=== PATIENT | female | born 1990 | race Caucasian/White ===

== ENCOUNTER 2018-07-18 14:06 | Emergency (ER) | payer OTHER | END 2018-07-18 16:43 | disposition home or self-care (01) | LOC: FTE 14:06 | DX: O26.891 Other specified pregnancy related conditions, first trimester (principal); Z3A.14 14 weeks gestation of pregnancy | CPT/HCPCS: 76805; 99284-25 ==

== ENCOUNTER 2018-12-26 21:37 | Outpatient (CLI) | payer OTHER ==
[2018-12-26 23:02] LABS: ADD MAN DIFF? NO
[2018-12-26 23:07] LABS: BASOPHILS % 0.2 % (0.0-2.0); EOSINOPHILS # 0.1 10^3/ul (0.0-0.5); EOSINOPHILS % 1.3 % (0.0-7.0); HEMOGLOBIN 11.7 g/dl (12.0-16.0); LYMPHOCYTES # 2.3 10^3/ul (0.8-2.9); LYMPHOCYTES % 24.7 % (15.0-51.0); MEAN CORPUSCULAR HEMOGLOBIN 29.3 pg (29.0-33.0); MEAN CORPUSCULAR HGB CONC 33.4 g/dl (32.0-37.0); MEAN CORPUSCULAR VOLUME 87.7 fl (82.0-101.0); MEAN PLATELET VOLUME 10.5 fl (7.4-10.4); MONOCYTE # 0.7 10^3/ul (0.3-0.9); MONOCYTES % 7.4 % (0.0-11.0); PLATELET COUNT 175 10^3/UL (140-415); RED BLOOD COUNT 3.99 10^6/ul (4.20-5.40); RED CELL DISTRIBUTION WIDTH 14.3 % (11.5-14.5)
[2018-12-26 23:07] LABS: WHITE BLOOD COUNT 9.3 10^3/ul (4.8-10.8)
[2018-12-26 23:09] LABS: ADD UMIC NO; UR ASCORBIC ACID NEGATIVE (NEGATIVE); UR BACTERIA FEW /HPF (NONE SEEN); UR BILIRUBIN (Dip) NEGATIVE (NEGATIVE); UR BLOOD (Dip) NEGATIVE (NEGATIVE); UR CLARITY SLIGHTLY CLOUDY (CLEAR); UR COLOR YELLOW (YELLOW); UR GLUCOSE (Dip) NEGATIVE (NEGATIVE); UR KETONES (Dip) NEGATIVE (NEGATIVE); UR LEUKOCYTE ESTERASE (Dip) NEGATIVE Leu/ul (NEGATIVE); UR NITRITE (Dip) NEGATIVE (NEGATIVE); UR RBC 0 /HPF (0-5); UR SPECIFIC GRAVITY (Dip) 1.014 (1.003-1.030); UR SQUAMOUS EPITHELIAL CELL MODERATE /HPF (FEW); UR TOTAL PROTEIN (Dip) NEGATIVE (NEGATIVE); UR UROBILINOGEN (Dip) NEGATIVE (NEGATIVE); UR WBC 1 /HPF (0-5)
[2018-12-26 23:26] LABS: INR 1.01; PARTIAL THROMBOPLASTIN TIME 25.8 Sec (23.0-35.0); PROTIME 13.4 Sec (11.9-14.9)
[2018-12-26 23:34] LABS: ALANINE AMINOTRANSFERASE 26 IU/L (13-69); ALBUMIN 3.5 g/dl (3.3-4.9); ALBUMIN/GLOBULIN RATIO 1.02; ALKALINE PHOSPHATASE 159 IU/L (42-121); ANION GAP 11 (5-13); ASPARTATE AMINO TRANSFERASE 23 IU/L (15-46); BILIRUBIN,INDIRECT 0.1 mg/dl (0-1.1); BILIRUBIN,TOTAL 0.1 mg/dl (0.2-1.3); BLOOD UREA NITROGEN 8 mg/dl (7-20); CALCIUM 9.3 mg/dl (8.4-10.2); CARBON DIOXIDE 19 mmol/L (21-31); CHLORIDE 106 mmol/L (97-110); CREATININE 0.51 mg/dl (0.44-1.00); Estimated GFR > 60 mL/min (>60); GLUCOSE 79 mg/dl (70-220); POTASSIUM 3.7 mmol/L (3.5-5.1); SODIUM 136 mmol/L (135-144); TOTAL PROTEIN 6.9 g/dl (6.1-8.1); URIC ACID 3.7 mg/dl (3.1-7.9)
== END 2018-12-26 23:57 | disposition home or self-care (01) ==
LOC: OBT 21:37 → L-D 21:37 → OBT 23:57
DX: O26.893 Other specified pregnancy related conditions, third trimester (principal); Z3A.36 36 weeks gestation of pregnancy; H53.8 Other visual disturbances
CPT/HCPCS: 76818; 80053; 81001; 81003; 84560; 85025; 85384; 85610; 85730

== ENCOUNTER 2018-12-29 21:00 | Outpatient (CLI) | payer OTHER | END 2018-12-29 23:17 | disposition home or self-care (01) | LOC: OBT 21:00 → L-D 21:06 | DX: O41.93X0 Disorder of amniotic fluid and membranes, unspecified, third trimester, not applicable or unspecified (principal); Z3A.36 36 weeks gestation of pregnancy | CPT/HCPCS: 76815 ==

== ENCOUNTER 2019-01-15 17:16 | Inpatient (IN) | payer OTHER ==
[2019-01-15] MEDS ORDERED: LACTATED RINGER'S 1,000 ML IV (20:35)
[2019-01-15] MEDS ORDERED: BUTORPHANOL 2 MG INJ IV (21:00)
[2019-01-15] MEDS ORDERED: CARBOPROST 250 MCG INJ IM (21:00)
[2019-01-15] MEDS ORDERED: BUTORPHANOL 1 MG INJ IV (21:00)
[2019-01-15] MEDS: LACTATED RINGER'S 1,000 ML IV (21:00)
[2019-01-15] MEDS ORDERED: LIDOCAINE 1% (MPF) 30 ML INJ INJ (21:00)
[2019-01-15] MEDS ORDERED: IBUPROFEN 600 MG TAB PO (21:00)
[2019-01-15] MEDS ORDERED: OXYTOCIN 30 UNITS/LR 500 ML IV (21:00)
[2019-01-15] MEDS ORDERED: MINERAL OIL LIGHT 10 ML VIAL TOP (21:00)
[2019-01-15 21:50] LABS: ADD MAN DIFF? NO
[2019-01-15 21:52] LABS: WHITE BLOOD COUNT 10.6 10^3/ul (4.8-10.8)
[2019-01-15 21:52] LABS: BASOPHILS % 0.2 % (0.0-2.0); EOSINOPHILS # 0.2 10^3/ul (0.0-0.5); EOSINOPHILS % 1.5 % (0.0-7.0); HEMATOCRIT 36.5 % (37.0-47.0); HEMOGLOBIN 12.3 g/dl (12.0-16.0); LYMPHOCYTES # 2.2 10^3/ul (0.8-2.9); LYMPHOCYTES % 20.3 % (15.0-51.0); MEAN CORPUSCULAR HEMOGLOBIN 29.1 pg (29.0-33.0); MEAN CORPUSCULAR HGB CONC 33.7 g/dl (32.0-37.0); MEAN CORPUSCULAR VOLUME 86.3 fl (82.0-101.0); MEAN PLATELET VOLUME 10.3 fl (7.4-10.4); MONOCYTE # 0.8 10^3/ul (0.3-0.9); MONOCYTES % 7.1 % (0.0-11.0); NEUTROPHIL # 7.4 10^3/ul (1.6-7.5); NEUTROPHILS % 69.6 % (39.0-77.0); PLATELET COUNT 186 10^3/UL (140-415); RED BLOOD COUNT 4.23 10^6/ul (4.20-5.40); RED CELL DISTRIBUTION WIDTH 14.6 % (11.5-14.5)
[2019-01-15 22:08] LABS: ALANINE AMINOTRANSFERASE 28 IU/L (13-69); ALBUMIN 3.6 g/dl (3.3-4.9); ALBUMIN/GLOBULIN RATIO 1.16; ALKALINE PHOSPHATASE 194 IU/L (42-121); ANION GAP 9 (5-13); ASPARTATE AMINO TRANSFERASE 27 IU/L (15-46); BILIRUBIN,INDIRECT 0.2 mg/dl (0-1.1); BILIRUBIN,TOTAL 0.2 mg/dl (0.2-1.3); BLOOD UREA NITROGEN 9 mg/dl (7-20); CARBON DIOXIDE 19 mmol/L (21-31); CHLORIDE 109 mmol/L (97-110); CREATININE 0.54 mg/dl (0.44-1.00); Estimated GFR > 60 mL/min (>60); GLUCOSE 84 mg/dl (70-220); POTASSIUM 3.7 mmol/L (3.5-5.1); SODIUM 137 mmol/L (135-144); TOTAL PROTEIN 6.7 g/dl (6.1-8.1)
[2019-01-15 22:13] LABS: PROTIME 13.3 Sec (11.9-14.9)
[2019-01-15 22:14] LABS: PARTIAL THROMBOPLASTIN TIME 27.2 Sec (23.0-35.0)
[2019-01-15] MEDS: AMPICILLIN 2 GM/NS (PMX) 100 ML IV (22:55)
[2019-01-15] MEDS: MISOPROSTOL 50 MCG CAPSULE PO (22:55)
[2019-01-16] MEDS: MISOPROSTOL 50 MCG CAPSULE PO ×3 (03:12→12:04)
[2019-01-16] MEDS: AMPICILLIN 1 GM/NS (PMX) 50 ML IV ×6 (03:12→23:21)
[2019-01-16] MEDS: LACTATED RINGER'S 1,000 ML IV ×3 (06:52→20:19)
[2019-01-16] MEDS: URSODIOL 300 MG CAP PO ×2 (08:35→22:06)
[2019-01-16] MEDS ORDERED: FENTAnyl 2MCG/ML-ROPIV 0.2% 100 ML (19:52)
[2019-01-16] MEDS ORDERED: ONDANSETRON 4 MG INJ IV (20:30)
[2019-01-16] MEDS ORDERED: DIPHENHYDRAMINE 50 MG INJ IV (20:30)
[2019-01-16] MEDS ORDERED: FENTAnyl 2MCG/ML-ROPIV 0.2% 100 ML BAG EPI (20:30)
[2019-01-16] MEDS ORDERED: TRIMETHOBENZAMIDE 100 MG/ML VIAL IM (20:30)
[2019-01-16] MEDS ORDERED: NALOXONE (0.4 MG/ML) INJ IV (20:30)
[2019-01-16 20:39] LABS: RAPID PLASMA REAGIN NONREACTIVE (NR)
[2019-01-17] MEDS: METHYLERGONOVINE 0.2 MG INJ IM (02:16)
[2019-01-17] MEDS: MISOPROSTOL 200 MCG TAB PR (02:17)
[2019-01-17] MEDS: OXYTOCIN 30 UNITS/LR 500 ML IV ×3 (02:18→03:16)
[2019-01-17] MEDS ORDERED: HYDROCODONE/APAP (5/325) TAB PO ×2 (02:30)
[2019-01-17] MEDS ORDERED: MISOPROSTOL 200 MCG TAB PR (02:30)
[2019-01-17] MEDS ORDERED: DIPHENHYDRAMINE 25 MG CAP PO (02:30)
[2019-01-17] MEDS ORDERED: SENNA/DOCUSATE NA (8.6MG/50MG) TAB PO (02:30)
[2019-01-17] MEDS ORDERED: ONDANSETRON 4 MG INJ IV (02:30)
[2019-01-17] MEDS ORDERED: DIPHENHYDRAMINE 50 MG INJ IV (02:30)
[2019-01-17] MEDS ORDERED: DIBUCAINE 1% 30 GM OINT TOP (02:30)
[2019-01-17] MEDS ORDERED: MAGNESIUM HYDROXIDE 30ML CUP PO (02:30)
[2019-01-17] MEDS ORDERED: CARBOPROST 250 MCG INJ IM (02:30)
[2019-01-17] MEDS ORDERED: OXYTOCIN 30 UNITS/LR 500 ML IV (02:30)
[2019-01-17] MEDS ORDERED: ONDANSETRON 4 MG TAB PO (02:30)
[2019-01-17] MEDS ORDERED: NA PHOSPHATE/BIPHOS 133 ML ENEMA PR (02:30)
[2019-01-17] MEDS: IBUPROFEN 600 MG TAB PO ×3 (06:29→18:06)
[2019-01-17] MEDS: LACTATED RINGER'S 1,000 ML IV (07:24)
[2019-01-17] MEDS: LACTATED RINGER'S 1,000 ML IV* ×2 (07:24→10:23)
[2019-01-17] MEDS: BENZOCAINE 20% 56 ML SPRAY TOP (08:30)
[2019-01-17] MEDS: URSODIOL 300 MG CAP PO ×2 (08:30→22:22)
[2019-01-17] MEDS: SENNA/DOCUSATE NA (8.6MG/50MG) TAB PO ×2 (08:30→21:27)
[2019-01-17] MEDS: LANOLIN HPA 1 PKT TOP ×2 (08:30→22:22)
[2019-01-17] MEDS: WITCH HAZEL/GLYCERIN PAD PR (08:30)
[2019-01-18] MEDS: IBUPROFEN 600 MG TAB PO ×5 (00:12→23:48)
[2019-01-18 05:14] LABS: ADD MAN DIFF? NO
[2019-01-18 05:16] LABS: BASOPHILS % 0.1 % (0.0-2.0); EOSINOPHILS # 0.3 10^3/ul (0.0-0.5); EOSINOPHILS % 1.8 % (0.0-7.0); HEMATOCRIT 29.8 % (37.0-47.0); LYMPHOCYTES # 2.9 10^3/ul (0.8-2.9); LYMPHOCYTES % 19.9 % (15.0-51.0); MEAN CORPUSCULAR HEMOGLOBIN 29.5 pg (29.0-33.0); MEAN CORPUSCULAR HGB CONC 33.6 g/dl (32.0-37.0); MEAN CORPUSCULAR VOLUME 87.9 fl (82.0-101.0); MEAN PLATELET VOLUME 10.7 fl (7.4-10.4); MONOCYTES % 7.1 % (0.0-11.0); NEUTROPHILS % 70.1 % (39.0-77.0); PLATELET COUNT 159 10^3/UL (140-415); RED BLOOD COUNT 3.39 10^6/ul (4.20-5.40); RED CELL DISTRIBUTION WIDTH 15.1 % (11.5-14.5)
[2019-01-18 05:16] LABS: WHITE BLOOD COUNT 14.3 10^3/ul (4.8-10.8)
[2019-01-18] MEDS: SENNA/DOCUSATE NA (8.6MG/50MG) TAB PO ×2 (10:22→20:51)
[2019-01-18] MEDS: URSODIOL 300 MG CAP PO ×2 (10:22→20:51)
[2019-01-19] MEDS: IBUPROFEN 600 MG TAB PO ×2 (05:43→12:41)
[2019-01-19] MEDS: SENNA/DOCUSATE NA (8.6MG/50MG) TAB PO (09:00)
[2019-01-19] MEDS: URSODIOL 300 MG CAP PO (09:53)
[2019-01-19] MEDS: MEASLES,MUMPS,RUBELLA VACCINE INJ SC* (09:53)
[2019-01-19] MEDS: VARICELLA VACCINE LIVE/PF 1,350 UNIT/0.5 ML ML SC* (09:53)
[2019-01-19] MEDS: DIPHTH/TET/ACEL PERTUSS (ADULT) 0.5 ML VIAL IM* (09:53)
[2019-01-19] MEDS: BENZOCAINE 20% 56 ML SPRAY TOP (12:44)
[2019-01-19] MEDS: WITCH HAZEL/GLYCERIN PAD PR (12:44)
== END 2019-01-19 13:00 | disposition home or self-care (01) | DRG 805 ==
LOC: MS1 01-17 04:55 → L-D 17:16
PROC: 3E033VJ Introduction of Other Hormone into Peripheral Vein, Percutaneous Approach (ICD-10-PCS; 2019-01-15)
PROC: 10E0XZZ Delivery of Products of Conception, External Approach (ICD-10-PCS; principal; 2019-01-17)
DX: O26.62 Liver and biliary tract disorders in childbirth (principal); K83.1 Obstruction of bile duct; O69.81X0 Labor and delivery complicated by cord around neck, without compression, not applicable or unspecified; O99.355 Diseases of the nervous system complicating the puerperium; G56.03 Carpal tunnel syndrome, bilateral upper limbs; Z37.0 Single live birth; Z3A.39 39 weeks gestation of pregnancy
CPT/HCPCS: 62319; 76815; 76818; 80053; 85025; 85610; 85730; 86592; 86850; 86900; 86901; 90715; 90716

== ENCOUNTER 2019-01-21 15:27 | Emergency (ER) | payer OTHER | END 2019-01-21 18:31 | disposition home or self-care (01) | LOC: E/R 15:27 | DX: N64.4 Mastodynia (principal); E11.9 Type 2 diabetes mellitus without complications | CPT/HCPCS: 99283 ==